=== PATIENT | male | born 1970 | race Caucasian/White ===

== ENCOUNTER → 2019-04-14 09:44 | Outpatient (CLI) | payer OTHER, SELFPAY ==
[2019-04-14 10:28] LABS: HEMOLYSIS < 15 (0-50); Iron 80 ug/dL (49-181)
[2019-04-14 10:31] LABS: Cholesterol 201 mg/dL (140-199); HDL Cholesterol 45 mg/dL (40-60); LDL Cholesterol Calculated 135 mg/dL (<100); Magnesium 2.3 mg/dL (1.6-2.3); Triglycerides 104 mg/dL (35-150)
[2019-04-14 10:38] LABS: Percent Iron Saturation 25 % (20-50); Total Iron Binding Capacity 314 ug/dL (261-462); Transferrin 250 mg/dL (206-381)
[2019-04-14 11:00] LABS: TSH w/ Reflex to FT4 3.72 uIU/mL (0.47-4.68)
== END ==
PROVIDERS: PCP Student in an Organized Health Care Education/Training Program; Visit Provider Student in an Organized Health Care Education/Training Program
DX: R53.83 Other fatigue (principal); N52.9 Male erectile dysfunction, unspecified; Z13.6 Encounter for screening for cardiovascular disorders
CPT/HCPCS: 36415; 80061; 83540; 83550; 83735; 84403; 84443

== ENCOUNTER → 2020-04-23 13:22 | Outpatient (CLI) | payer OTHER, SELFPAY ==
[2020-04-24 19:18] LABS: COVID19 Sendout Not Detected (Not Detect)
== END ==
PROVIDERS: PCP Student in an Organized Health Care Education/Training Program; Visit Provider Physician Assistant
DX: Z01.812 Encounter for preprocedural laboratory examination (principal)
CPT/HCPCS: 87635

== ENCOUNTER 2020-04-26 07:32 | Day surgery (SDC) | payer OTHER, SELFPAY ==
[2020-04-26] VITALS (7 sets, daily range): BP systolic 101–127; BP diastolic 67–84; PULSE 61–70; RESP 12–17; TEMP 36.2–36.6; O2SAT 89–97; BMI 31.2
--- NOTE | 2020-04-26 | PATH_ITS ---
[facility] Accession Number: [id number] . 01 Material submitted: . PART A: cecum - CECAL POLYP AT 140CM PART B: colon - COLON POLYP 70CM . 01 Clinical history: . SCREENING COLONOSCOPY . 02 Diagnosis: A. Cecum at 140 cm, Polyp: Tubular adenoma. . B. Colon at 70 cm, Polyp: Tubular adenoma. MRV 04/30/2020 1034 Local . 02 Electronically signed: . Dmitry Drummond MD, PhD, Pathologist NPI- [id number] . 01 Gross description: . Part A: CECAL POLYP AT 140CM: Received in formalin are 4 fragment(s) of sullivan, soft tissue measuring 0.5 x 0.4 x 0.3 cm to 0.2 x 0.2 x 0.2 cm submitted entirely in 1 cassette(s) Part B: COLON POLYP 70CM: Received in formalin are multiple fragment(s) of sullivan, soft tissue measuring 1.7 x 1.2 x 0.3 cm in aggregate submitted entirely in 1 cassette(s) /QBJ 04/27/2020 0837 Local . 02 Pathologist provided ICD-10: D12.0, D12.6 . 02 CPT . 872487, [id number] Performed at: 01 [facility] [address], [place], [place] [id number] MD Humberto Mackey MD Phone: [phone] Performed at: 02 [facility] [address] [place], [place] [id number] MD Krista Mendez MD Phone: [phone]
[2020-04-26] MEDS: SODIUM CHLORIDE 0.9% 1,000 ML 200 ML IV (07:57)
--- NOTE | 2020-04-26 08:20 | PM.HP.1 ---
History of Present Illness History of Present Illness Date Patient Seen: 04/26/20 Time Patient Seen: 08:20 Chief complaint: SCREENING COLONOSCOPY Narrative: 49-year-old man with no personal or family history of colon polyps or colon cancer. He has never had a screening colonoscopy. He denies any changes in bowel habits, any melena, hematochezia, unexplained abdominal pain, or unexplained weight loss. He says he is otherwise healthy with no heart problems or other major medical issues. He has an enlarged prostate and elevated cholesterol. ROS: Thirteen system review is otherwise negative other than as mentioned below and in HPI. PE GENERAL: Well groomed and cooperative. Appears stated age. Answers questions promptly and appropriately. Vital signs noted. HENT: Normocephalic, atraumatic. Hearing intact. EYES: Conjunctiva pink, sclera white, no periorbital swelling. CARDIOVASCULAR: Regular rate. No pedal edema. RESPIRATORY: Non-tachypneic, breathing comfortably on room air. GASTROINTESTINAL: Abdomen soft and non-distended GENITALURINARY: No flank tenderness. MUSCULOSKELETAL: Equal tone and mass bilaterally. SKIN: Warm, dry, soft, appropriate color for ethnicity. No other lesions, rashes, or wounds. NEURO: Alert and Oriented X 3. No gross sensory deficits, or cognitive issues. PSYCH: Appropriate affect and mood. Patient History Medical History Benign non-nodular prostatic hyperplasia without lower urinary tract symptoms (Chronic 08/26/15) Hearing loss (Chronic) Hyperlipidemia (Chronic) Right knee pain (Chronic) Surgical History No history of previous surgery (Resolved 12/28/12) Family & Social History Family History Father Age: 77 [place] (myocardial infarction) Skin cancer Hyperlipidemia Mother Age: 77 Arthritis Anxiety Knee problem Grandfather Heart disease Sister MS (multiple sclerosis) Knee problem Son Anxiety Social History: household members spouse Tobacco & Substance use: Smoking Status Never smoker alcohol intake current alcohol intake frequency 0-2 drinks per day Substance Use Type does not use Meds Home Medications and Allergies Home Medications Medication Instructions Recorded Confirmed Type vardenafil 5 mg tablet 10 mg PO DAILY PRN 10/07/18 04/26/20 History tamsulosin 0.4 mg capsule 0.4 mg PO QDAY #90 cap 01/13/19 04/26/20 Rx Allergies Allergy/AdvReac Type Severity Reaction Status Date / Time No Known Drug Allergies Allergy Verified 04/26/20 07:45 Exam Vital Signs (past 8 hours): - 04/26/20 07:50 Temperature 97.2 F L Pulse Rate 65 Respiratory Rate 16 Blood Pressure 127/84 Pulse Oximetry 97 Oxygen Delivery Method Room Air Assessment & Plan Assessment and plan (1) At average risk for colon cancer: Status: Acute Assessment & Plan narrative: Risks and benefits of screening colonoscopy and possible polypectomy were discussed with the patient including risk of bleeding, perforation, need for additional procedures, risks of anesthesia. The patient desires to proceed with the colonoscopy procedure. COVID-19 COVID-19 status: Negative Result date/Date tested (Pos, Neg/Pending): 04/23/20 Time Spent With Patient Time with patient: 15-24 minutes
--- NOTE | 2020-04-26 08:22 | P.OP.ENDO_ITS ---
Operative Date/Time/Diagnoses Date of procedure: 04/26/20 Time of procedure: 08:22 Pre-op diagnosis: Average risk for colon cancer, never had a screening colonoscopy Procedure & Clinicians Study performed: colonoscopy procedural sedation by the endoscopist polypectomy with cold forceps x 3 Same procedure as scheduled: Yes Indications: 49-year-old man at average risk for colon cancer who has never had a screening colonoscopy Surgeon: Mendy Shah Procedure Notes SCOAP/Timeout: Performed Procedure in detail: The patient was brought to the room and placed in left lateral decubitus position with all bony prominences padded. A time-out was per formed and then the patient was given procedural sedation starting with 4 mg of Versed and 100 mcg of fentanyl. Total of 6 of Versed and 200 micro g of fentanyl were given for the entire procedure Vitals were monitored throughout the procedure and remained stable. Once adequately sedated, the procedure was begun. A rectal exam was performed revealing no abnormalities. The colonoscope was then introduced to the rectum and advanced to the cecum in the usual fashion. The cecum was identified by the appendiceal orifice, the mucosal tri- fold, and the ileocecal valve. The scope was then retracted while rotating side to side and examining each mucosal fold. Two polyps were removed at 140 cm just outside the cecum, using cold forceps. An additional polyp was removed at 70 cm using cold forceps. At the conclusion of the procedure retroflexion was performed and small grade 1-2 internal hemorrhoids without stigmata of bleeding were seen. The scope was then withdrawn from the rectum the procedure was concluded. The patient tolerated the procedure well and was transferred to the PACU in stable condition. Scope withdrawal time: 20 Sedation minutes: 34 Findings: polyp Specimen(s): other (Two polyps from cecum, 1 polyp from 70 cm) Complications: none Impression: Multiple polyps, which looked like early precancerous adenomas Post-procedure Recommendations: Colonscopy in 5 years (Depending on final pathology result) Follow up: as needed Disposition: PACU
[2020-04-26] MEDS: fentaNYL 250 MCG/5 ML INJ IV (09:07)
[2020-04-26] MEDS: MIDAZOLAM 5 MG/5 ML VIAL IV (09:08)
--- NOTE | 2020-04-26 15:19 | SUR.PHASEI ---
Late entry: Pt slow to wake up, supplemental 02 needed, then weaned off, tolerated liquids, to OPD.
== END 2020-04-26 10:20 | disposition home or self-care (01) ==
PROVIDERS: PCP Student in an Organized Health Care Education/Training Program; Referring Provider Surgery; Visit Provider Surgery
PROC: 0DJD8ZZ Inspection of Lower Intestinal Tract, Via Natural or Artificial Opening Endoscopic (ICD-10-PCS; CPT 45378; principal; 2020-04-26 08:30)
DX: Z12.11 Encounter for screening for malignant neoplasm of colon (principal); K64.0 First degree hemorrhoids; E78.5 Hyperlipidemia, unspecified; N40.0 Benign prostatic hyperplasia without lower urinary tract symptoms; D12.0 Benign neoplasm of cecum; D12.6 Benign neoplasm of colon, unspecified
CPT/HCPCS: 45380; 99152; 99153; J2250; J3010